=== PATIENT | male | born 1950 | race African-American/Black ===

== ENCOUNTER 2022-03-25 11:33 | Inpatient (IN) ==
[2022-03-25] MEDS ORDERED: HEPARIN/NACL 0.9% 2 UNITS/ML 3,000 UNIT/1,500 ML BAG IV ONE (12:58)
[2022-03-25 13:00] LABS: Basophils % 0.3 % (0.0-0.8); Eosinophils % 0.1 % (0.00-10.9); Hematocrit 38.3 VOL% (42.0-52.0); Hemoglobin 12.3 GM/DL (14.0-18.0); Immature Granulocytes % 0.3 %; Immature Granulocytes Absolute 0.04 #; Lymphocytes # 1.5 10*3/uL (1.4-4.0); Lymphocytes % 11.7 % (21.2-54.2); Mean Corpuscular HGB Conc 32.1 GM/DL (32-36); Mean Corpuscular Volume 85.7 FL (87-102); Mean Platelet Volume 10.5 FL (9.6-12.0); Monocytes # 1.2 10*3/uL (0.11-0.8); Monocytes % 9.4 % (1.7-12.7); Neutrophils % 78.2 % (38.7-73.9); Platelet Count 335 T/CUMM (130-400); Red Blood Count 4.47 MC/CUMM (3.8-5.5); Red Cell Distribution Width 15.9 % (9.3-17.3); White Blood Count 12.4 T/CUMM (4-12)
[2022-03-25 13:26] LABS: Alanine Aminotransferase 75 U/L (16-61); Albumin 3.4 G/DL (3.4-5.0); Alkaline Phosphatase 100 U/L (45-117); Aspartate Amino Transferase 593 U/L (0-37); Blood Urea Nitrogen 29 MG/DL (7-18); Calcium 9.3 MG/DL (8.5-10.1); Carbon Dioxide 24 MMOL/L (21-32); Chloride 106 MMOL/L (98-107); Glucose 101 MG/DL (74-106); Osmolality,Calculated 282.5 MOS/KG (273-304); Potassium 5.2 MMOL/L (3.5-5.1); Sodium 139 MMOL/L (136-145); Total Protein 7.5 G/DL (6.4-8.2)
[2022-03-25] MEDS ORDERED: MIDAZOLAM 2 MG/2 ML VIAL ONE (14:06)
[2022-03-25] MEDS ORDERED: fentaNYL 100 MCG/2 ML VIAL ONE (14:07)
[2022-03-25] MEDS ORDERED: HEPARIN 5,000 UNIT/1 ML VIAL ONE ×2 (14:08→14:23)
[2022-03-25] MEDS ORDERED: NITROGLYCERIN DRIP 50 MG/250 ML BOTTLE IV ONE (14:08)
[2022-03-25] MEDS ORDERED: ASPIRIN 325 MG TABLET ONE (14:09)
[2022-03-25] MEDS ORDERED: TICAGRELOR 90 MG TABLET ONE (14:10)
[2022-03-25] MEDS ORDERED: NITROPRUSSIDE 50 MG/2 ML VIAL ONE (14:24)
[2022-03-25 14:39] LABS: Bilirubin,Urine Small mg/dL (Negative); Glucose,Urine (UA) Negative (Negative); Ketones,Urine 15 mg/dL (Negative); Nitrite,Urine Negative (Negative); Protein,Urine 30 mg/dL (Negative); Urine Appearance Clear (Clear); Urine Color Yellow (Yellow); Urine pH 5.5 (4.5-8.0)
[2022-03-25 14:40] LABS: Blood, Urine Small mg/dL (Negative)
[2022-03-25 14:42] LABS: Barbiturates Screen,Urine Negative (Negative); Benzodiazepines Screen,Urine Negative (Negative); Cannabinoid Screen,Urine Negative (Negative); Opiate Screen,Urine Negative (Negative); Phencyclidine Screen,Urine Negative (Negative)
[2022-03-25] MEDS ORDERED: ZALEPLON 5 MG CAPSULE PO PRN (14:42)
[2022-03-25] MEDS ORDERED: BISACODYL 5 MG TABLET PO PRN (14:42)
[2022-03-25] MEDS ORDERED: diphenhydrAMINE CAP 25 MG CAPSULE PO PRN (14:42)
[2022-03-25] MEDS ORDERED: hydrALAZINE 20 MG/1 ML VIAL IV PRN (14:42)
[2022-03-25] MEDS ORDERED: CALCIUM CARBONATE CHEW 500 MG TABLET PO PRN (14:42)
[2022-03-25] MEDS ORDERED: ALUMINUM/MAGNES/SIMETH MAX STR 30 ML UDCUP PO PRN (14:42)
[2022-03-25] MEDS ORDERED: ACETAMINOPHEN 325 MG TABLET PO PRN (14:42)
[2022-03-25] MEDS ORDERED: SIMETHICONE CHEW 125 MG TABLET PO PRN (14:42)
[2022-03-25] MEDS ORDERED: GLUCAGON 1 MG VIAL IM PRN (14:49)
[2022-03-25] MEDS ORDERED: DEXTROSE 10% 250 ML BAG IV PRN (14:54)
[2022-03-25] MEDS: MORPHINE 2 MG/1 ML SYRINGE IV PRN (16:39)
[2022-03-25] MEDS: INSULIN LISPRO 100 UNIT/ML SUBCUT SCH ×2 (17:43→21:10)
[2022-03-25] MEDS: ONDANSETRON 4 MG/2 ML VIAL IV PRN (18:52)
[2022-03-25 18:59] LABS: Arterial Base Excess iSTAT -4 MMOL/L (-2.5-2.5); Arterial Bicarbonate iSTAT 19.8 MMOL/L (20-26); Arterial O2 Saturation iSTAT 99 % (95-100); Arterial PCO2 iSTAT 31 MM HG (35-48); Arterial PO2 iSTAT 120 MM HG (80-95); Arterial Total CO2 iSTAT 21 MMO/L (23-27); Arterial pH iSTAT 7.412 (7.35-7.45)
[2022-03-25] MEDS ORDERED: ALUM/MAG/SIMETH/LIDO VISC 1:1 30 ML BOTTLE PO ONE (19:00)
[2022-03-25] MEDS ORDERED: METOPROLOL TARTRATE 5 MG/5 ML VIAL IV ONE (20:00)
[2022-03-25] MEDS ORDERED: FUROSEMIDE 40 MG/4 ML VIAL IV ONE (20:00)
[2022-03-25] MEDS: carvediloL 3.125 MG TABLET PO SCH (21:08)
[2022-03-26 05:05] LABS: Basophils # 0.1 10*3/uL (0.0-0.2); Basophils % 0.5 % (0.0-0.8); Hematocrit 39.3 VOL% (42.0-52.0); Hemoglobin 12.4 GM/DL (14.0-18.0); Immature Granulocytes % 0.7 %; Immature Granulocytes Absolute 0.08 #; Lymphocytes # 1.3 10*3/uL (1.4-4.0); Lymphocytes % 10.9 % (21.2-54.2); Mean Corpuscular HGB Conc 31.6 GM/DL (32-36); Mean Corpuscular Volume 86.6 FL (87-102); Mean Platelet Volume 11.3 FL (9.6-12.0); Monocytes # 0.9 10*3/uL (0.11-0.8); Monocytes % 7.6 % (1.7-12.7); Neutrophils % 80.3 % (38.7-73.9); Platelet Count 331 T/CUMM (130-400); Red Blood Count 4.54 MC/CUMM (3.8-5.5); Red Cell Distribution Width 15.9 % (9.3-17.3); White Blood Count 11.5 T/CUMM (4-12)
[2022-03-26 05:47] LABS: Calcium 9.4 MG/DL (8.5-10.1); Osmolality,Calculated 288.8 MOS/KG (273-304); Potassium 5.1 MMOL/L (3.5-5.1); Risk Ratio 3.68; Thyroid Stimulating Hormone 0.591 uIU/ml (0.358-3.74); VLDL Cholesterol 18.8 MG/DL
[2022-03-26] MEDS: ASPIRIN EC 81 MG TABLET PO SCH (08:24)
[2022-03-26] MEDS: INSULIN LISPRO 100 UNIT/ML SUBCUT SCH ×4 (08:24→20:26)
[2022-03-26] MEDS: carvediloL 3.125 MG TABLET PO SCH (08:24)
[2022-03-26] MEDS: PANTOPRAZOLE 40 MG TABLET PO SCH (08:24)
[2022-03-26] MEDS: TICAGRELOR 90 MG TABLET PO SCH ×2 (08:24→20:26)
[2022-03-26] MEDS: DAPAGLIFLOZIN 10 MG TABLET PO SCH (08:24)
[2022-03-26] MEDS ORDERED: SACUBITRIL/VALSARTAN 49-51 MG TABLET PO SCH (09:00)
[2022-03-26] MEDS: carvediloL 6.25 MG TABLET PO SCH ×2 (11:41→20:26)
[2022-03-26] MEDS: SODIUM BICARBONATE 650 MG TABLET PO SCH ×2 (11:42→20:27)
[2022-03-26] MEDS ORDERED: FUROSEMIDE 40 MG/4 ML VIAL IV ONE (15:30)
[2022-03-27 04:17] LABS: Basophils # 0.1 10*3/uL (0.0-0.2); Basophils % 0.6 % (0.0-0.8); Eosinophils # 0.1 10*3/uL (0.0-0.87); Eosinophils % 0.9 % (0.00-10.9); Hematocrit 37.6 VOL% (42.0-52.0); Hemoglobin 11.8 GM/DL (14.0-18.0); Immature Granulocytes % 0.5 %; Immature Granulocytes Absolute 0.06 #; Lymphocytes # 1.2 10*3/uL (1.4-4.0); Lymphocytes % 9.8 % (21.2-54.2); Mean Corpuscular HGB Conc 31.4 GM/DL (32-36); Mean Corpuscular Volume 85.6 FL (87-102); Mean Platelet Volume 11.5 FL (9.6-12.0); Monocytes % 8.6 % (1.7-12.7); Neutrophils % 79.6 % (38.7-73.9); Platelet Count 328 T/CUMM (130-400); Red Blood Count 4.39 MC/CUMM (3.8-5.5); Red Cell Distribution Width 15.5 % (9.3-17.3); White Blood Count 11.8 T/CUMM (4-12)
[2022-03-27 04:45] LABS: Albumin 2.8 G/DL (3.4-5.0); Bilirubin,Direct 0.37 MG/DL (0.0-0.20); Bilirubin,Indirect 0.7 MG/DL (0.0-1.0); Bilirubin,Total 1.1 MG/DL (0.20-1.00); Total Protein 7.8 G/DL (6.4-8.2)
[2022-03-27 04:47] LABS: Calcium 9.4 MG/DL (8.5-10.1); Osmolality,Calculated 292.4 MOS/KG (273-304); Potassium 4.4 MMOL/L (3.5-5.1)
[2022-03-27] MEDS: DAPAGLIFLOZIN 10 MG TABLET PO SCH (08:12)
[2022-03-27] MEDS: carvediloL 6.25 MG TABLET PO SCH ×2 (08:12→20:13)
[2022-03-27] MEDS: PANTOPRAZOLE 40 MG TABLET PO SCH (08:12)
[2022-03-27] MEDS: ASPIRIN EC 81 MG TABLET PO SCH (08:12)
[2022-03-27] MEDS: SODIUM BICARBONATE 650 MG TABLET PO SCH ×2 (08:12→20:13)
[2022-03-27] MEDS: TICAGRELOR 90 MG TABLET PO SCH ×2 (08:12→20:13)
[2022-03-27] MEDS: INSULIN LISPRO 100 UNIT/ML SUBCUT SCH ×4 (08:12→20:13)
[2022-03-27] MEDS ORDERED: METHOCARBAMOL 500 MG TABLET PO PRN (10:27)
[2022-03-27] MEDS ORDERED: traMADol 50 MG TABLET PO PRN (10:27)
[2022-03-27] MEDS ORDERED: hydrALAZINE 25 MG TABLET PO PRN (10:27)
[2022-03-27] MEDS: FERROUS SULFATE 325 MG TABLET PO SCH (20:13)
[2022-03-28 04:34] LABS: Basophils # 0.1 10*3/uL (0.0-0.2); Basophils % 0.5 % (0.0-0.8); Eosinophils # 0.1 10*3/uL (0.0-0.87); Eosinophils % 1.3 % (0.00-10.9); Hematocrit 36.2 VOL% (42.0-52.0); Hemoglobin 11.6 GM/DL (14.0-18.0); Immature Granulocytes % 0.4 %; Immature Granulocytes Absolute 0.04 #; Lymphocytes # 0.9 10*3/uL (1.4-4.0); Lymphocytes % 8.5 % (21.2-54.2); Mean Platelet Volume 11.5 FL (9.6-12.0); Monocytes # 0.9 10*3/uL (0.11-0.8); Monocytes % 8.9 % (1.7-12.7); Neutrophils % 80.4 % (38.7-73.9); Platelet Count 317 T/CUMM (130-400); Red Blood Count 4.26 MC/CUMM (3.8-5.5); Red Cell Distribution Width 15.5 % (9.3-17.3); White Blood Count 10.6 T/CUMM (4-12)
[2022-03-28 05:35] LABS: Calcium 8.9 MG/DL (8.5-10.1); Osmolality,Calculated 295.5 MOS/KG (273-304); Potassium 4.3 MMOL/L (3.5-5.1)
[2022-03-28 06:09] LABS: Albumin 2.7 G/DL (3.4-5.0); Bilirubin,Direct 0.3 MG/DL (0.0-0.20); Bilirubin,Indirect 0.6 MG/DL (0.0-1.0); Bilirubin,Total 0.9 MG/DL (0.20-1.00); Total Protein 7.7 G/DL (6.4-8.2)
[2022-03-28] MEDS: FERROUS SULFATE 325 MG TABLET PO SCH ×2 (08:28→22:54)
[2022-03-28] MEDS: INSULIN LISPRO 100 UNIT/ML SUBCUT SCH ×4 (08:28→22:10)
[2022-03-28] MEDS: PANTOPRAZOLE 40 MG TABLET PO SCH (08:28)
[2022-03-28] MEDS: DAPAGLIFLOZIN 10 MG TABLET PO SCH (08:28)
[2022-03-28] MEDS: ASPIRIN EC 81 MG TABLET PO SCH (08:28)
[2022-03-28] MEDS: SODIUM BICARBONATE 650 MG TABLET PO SCH ×2 (08:28→22:54)
[2022-03-28] MEDS: TICAGRELOR 90 MG TABLET PO SCH ×2 (08:28→22:54)
[2022-03-28] MEDS: carvediloL 6.25 MG TABLET PO SCH ×2 (08:28→22:49)
[2022-03-28] MEDS: NON-FORMULARY MEDICATION (Fluticasone Furoate-Vilanterol [Breo Ellipta] 100-25 mcg/dose Bl INH SCH (08:29)
[2022-03-28] MEDS: INSULIN GLARGINE 100 UNIT/ML SUBCUT SCH (08:42)
[2022-03-28] MEDS ORDERED: ASPIRIN EC 81 MG TABLET PO SCH (09:00)
[2022-03-28] MEDS ORDERED: PANTOPRAZOLE 40 MG TABLET PO SCH (09:00)
[2022-03-28] MEDS ORDERED: EPINEPHrine 1 MG/10 ML SYRINGE IV ONE (21:11)
[2022-03-28] MEDS ORDERED: ATROPINE 1 MG/10 ML SYRINGE IV ONE (21:13)
[2022-03-28] MEDS ORDERED: ETOMIDATE 20 MG/10 ML VIAL IV ONE ×2 (21:16→21:24)
[2022-03-28] MEDS ORDERED: ROCURONIUM 100 MG/10 ML VIAL IV ONE (21:25)
[2022-03-28 21:51] LABS: Basophils # 0.1 10*3/uL (0.0-0.2); Basophils % 0.8 % (0.0-0.8); Eosinophils # 0.3 10*3/uL (0.0-0.87); Hematocrit 36.8 VOL% (42.0-52.0); Hemoglobin 11.8 GM/DL (14.0-18.0); Immature Granulocytes % 0.8 %; Immature Granulocytes Absolute 0.11 #; Lymphocytes # 2.9 10*3/uL (1.4-4.0); Lymphocytes % 22.3 % (21.2-54.2); Mean Corpuscular HGB Conc 32.1 GM/DL (32-36); Mean Corpuscular Volume 85.4 FL (87-102); Mean Platelet Volume 11.4 FL (9.6-12.0); Monocytes # 1.3 10*3/uL (0.11-0.8); Monocytes % 9.8 % (1.7-12.7); NRBC # 0.03 10*3/uL; Neutrophils % 64.3 % (38.7-73.9); Platelet Count 341 T/CUMM (130-400); Red Blood Count 4.31 MC/CUMM (3.8-5.5); Red Cell Distribution Width 15.3 % (9.3-17.3); White Blood Count 13.2 T/CUMM (4-12)
[2022-03-28 21:56] LABS: Bacteria,Urine Occasional /HPF (Few); Hyaline Casts,Urine 3 /LPF (0-3); Mucus,Urine Occasional /LPF (Occasional); RBC,Urine 1 /HPF (0-4); Squamous Epithelial Cell,Urine Occasional /HPF (0-10)
[2022-03-28 21:57] LABS: Bilirubin,Urine Negative (Negative); Blood, Urine Small mg/dL (Negative); Glucose,Urine (UA) >=1000 mg/dL (Negative); Ketones,Urine Negative (Negative); Nitrite,Urine Negative (Negative); Protein,Urine Negative (Negative); Urine Appearance Clear (Clear); Urine Color Yellow (Yellow); Urine Urobilinogen 0.2 eU/dL (<2.0)
[2022-03-28 22:07] VITALS: BP 129/80
[2022-03-28 22:18] LABS: Calcium 8.8 MG/DL (8.5-10.1); Osmolality,Calculated 300.7 MOS/KG (273-304); Potassium 4.3 MMOL/L (3.5-5.1)
[2022-03-28] MEDS ORDERED: SODIUM CHLORIDE 0.9% 250 ML IV ONE (22:43)
[2022-03-28] MEDS ORDERED: MIDAZOLAM 10 MG/2 ML VIAL ONE (22:44)
[2022-03-28] MEDS ORDERED: MIDAZOLAM 10 MG/2 ML VIAL IV ONE (22:45)
[2022-03-28] MEDS: MIDAZOLAM 100 MG in SODIUM CHLORIDE 0.9% 80 ML IV PRN (22:55)
[2022-03-28] MEDS: fentaNYL INJ 1,250 MCG in SODIUM CHLORIDE 0.9% 225 ML IV PRN (22:55)
[2022-03-29] LABS: Arterial Base Excess iSTAT 1 MMOL/L (-2.5-2.5); Arterial Bicarbonate iSTAT 26.5 MMOL/L (20-26); Arterial O2 Saturation iSTAT 100 % (95-100); Arterial PCO2 iSTAT 47 MM HG (35-48); Arterial PO2 iSTAT 330 MM HG (80-95); Arterial Total CO2 iSTAT 28 MMO/L (23-27)
[2022-03-29] MEDS: PIPERACILLIN/TAZOBACTAM 3,375 MG in SODIUM CHLORIDE 0.9% 100 ML IV SCH ×2 (00:45→12:16)
[2022-03-29] MEDS: INSULIN LISPRO 100 UNIT/ML SUBCUT SCH ×4 (00:45→17:37)
[2022-03-29 04:48] LABS: Basophils # 0.1 10*3/uL (0.0-0.2); Basophils % 0.4 % (0.0-0.8); Eosinophils # 0.1 10*3/uL (0.0-0.87); Eosinophils % 0.8 % (0.00-10.9); Hematocrit 33.6 VOL% (42.0-52.0); Hemoglobin 10.9 GM/DL (14.0-18.0); Immature Granulocytes % 0.5 %; Immature Granulocytes Absolute 0.06 #; Lymphocytes # 1.4 10*3/uL (1.4-4.0); Lymphocytes % 11.8 % (21.2-54.2); Mean Corpuscular HGB Conc 32.4 GM/DL (32-36); Mean Platelet Volume 11.8 FL (9.6-12.0); Monocytes # 0.9 10*3/uL (0.11-0.8); Monocytes % 7.3 % (1.7-12.7); Neutrophils % 79.2 % (38.7-73.9); Platelet Count 312 T/CUMM (130-400); White Blood Count 11.9 T/CUMM (4-12)
[2022-03-29 05:33] LABS: Calcium 8.5 MG/DL (8.5-10.1); Osmolality,Calculated 297.8 MOS/KG (273-304); Potassium 4.6 MMOL/L (3.5-5.1)
[2022-03-29 05:48] LABS: Albumin 2.4 G/DL (3.4-5.0); Bilirubin,Direct 0.24 MG/DL (0.0-0.20); Bilirubin,Indirect 0.6 MG/DL (0.0-1.0); Bilirubin,Total 0.8 MG/DL (0.20-1.00)
[2022-03-29] MEDS: fentaNYL INJ 1,250 MCG in SODIUM CHLORIDE 0.9% 225 ML IV PRN ×2 (06:48→21:30)
[2022-03-29] MEDS: TICAGRELOR 90 MG TABLET PO SCH ×2 (08:47→21:25)
[2022-03-29] MEDS: DAPAGLIFLOZIN 10 MG TABLET PO SCH (08:47)
[2022-03-29] MEDS: FERROUS SULFATE 325 MG TABLET PO SCH ×2 (08:48→21:25)
[2022-03-29] MEDS: ASPIRIN EC 81 MG TABLET PO SCH (08:48)
[2022-03-29] MEDS: SODIUM BICARBONATE 650 MG TABLET PO SCH ×2 (08:48→21:24)
[2022-03-29] MEDS: INSULIN GLARGINE 100 UNIT/ML SUBCUT SCH (08:49)
[2022-03-29] MEDS: carvediloL 6.25 MG TABLET PO SCH ×2 (08:49→21:25)
[2022-03-29] MEDS: NON-FORMULARY MEDICATION (Fluticasone Furoate-Vilanterol [Breo Ellipta] 100-25 mcg/dose Bl INH SCH (08:51)
[2022-03-29] MEDS: PANTOPRAZOLE 40 MG VIAL IV SCH (08:54)
[2022-03-29 08:56] LABS: Arterial Base Excess iSTAT 0 MMOL/L (-2.5-2.5); Arterial Bicarbonate iSTAT 24.9 MMOL/L (20-26); Arterial O2 Saturation iSTAT 99 % (95-100); Arterial PCO2 iSTAT 41 MM HG (35-48); Arterial PO2 iSTAT 121 MM HG (80-95); Arterial Total CO2 iSTAT 26 MMO/L (23-27); Arterial pH iSTAT 7.393 (7.35-7.45)
[2022-03-29] MEDS ORDERED: FUROSEMIDE 20 MG TABLET PO SCH (09:00)
[2022-03-30] MEDS: INSULIN LISPRO 100 UNIT/ML SUBCUT SCH ×5 (00:55→23:45)
[2022-03-30] MEDS: PIPERACILLIN/TAZOBACTAM 3,375 MG in SODIUM CHLORIDE 0.9% 100 ML IV SCH ×3 (01:29→23:46)
[2022-03-30] MEDS: MIDAZOLAM 100 MG in SODIUM CHLORIDE 0.9% 80 ML IV PRN (04:05)
[2022-03-30 04:16] LABS: ABG Base Excess -1.6 MMOL/L (-2.5-2.5); ABG Oxygen Saturation 95.5 % (95-100); ABG PCO2 40.6 MM HG (35-48); ABG PH 7.371 (7.35-7.45); ABG PO2 83.8 MM HG (80-95); Allen Test Positive; Pt O2 Delivery Device Ventilator
[2022-03-30 05:24] LABS: Basophils # 0.1 10*3/uL (0.0-0.2); Basophils % 0.4 % (0.0-0.8); Eosinophils # 0.4 10*3/uL (0.0-0.87); Eosinophils % 2.3 % (0.00-10.9); Hematocrit 34.9 VOL% (42.0-52.0); Hemoglobin 11.2 GM/DL (14.0-18.0); Immature Granulocytes % 0.7 %; Immature Granulocytes Absolute 0.12 #; Lymphocytes # 0.9 10*3/uL (1.4-4.0); Lymphocytes % 5.5 % (21.2-54.2); Mean Corpuscular HGB Conc 32.1 GM/DL (32-36); Mean Corpuscular Volume 85.7 FL (87-102); Mean Platelet Volume 11.7 FL (9.6-12.0); Monocytes # 0.8 10*3/uL (0.11-0.8); Monocytes % 4.8 % (1.7-12.7); Neutrophils % 86.3 % (38.7-73.9); Platelet Count 251 T/CUMM (130-400); Red Blood Count 4.07 MC/CUMM (3.8-5.5); Red Cell Distribution Width 15.5 % (9.3-17.3); White Blood Count 16.4 T/CUMM (4-12)
[2022-03-30 05:41] LABS: Albumin 2.5 G/DL (3.4-5.0); Bilirubin,Direct 0.36 MG/DL (0.0-0.20); Bilirubin,Indirect 0.4 MG/DL (0.0-1.0); Bilirubin,Total 0.8 MG/DL (0.20-1.00); Osmolality,Calculated 308.5 MOS/KG (273-304); Potassium 4.8 MMOL/L (3.5-5.1)
[2022-03-30] MEDS: PANTOPRAZOLE 40 MG VIAL IV SCH (08:57)
[2022-03-30] MEDS: TICAGRELOR 90 MG TABLET PO SCH ×2 (08:57→20:10)
[2022-03-30] MEDS: FERROUS SULFATE 325 MG TABLET PO SCH ×2 (08:57→20:11)
[2022-03-30] MEDS: ASPIRIN EC 81 MG TABLET PO SCH (08:57)
[2022-03-30] MEDS: SODIUM BICARBONATE 650 MG TABLET PO SCH ×2 (08:57→20:10)
[2022-03-30] MEDS: DAPAGLIFLOZIN 10 MG TABLET PO SCH (08:57)
[2022-03-30] MEDS: carvediloL 3.125 MG TABLET PO SCH ×2 (08:57→20:11)
[2022-03-30] MEDS: INSULIN GLARGINE 100 UNIT/ML SUBCUT SCH (09:57)
[2022-03-30] MEDS: HEPARIN 5,000 UNIT/1 ML VIAL SUBCUT SCH ×2 (09:57→21:30)
[2022-03-30] MEDS: fentaNYL INJ 1,250 MCG in SODIUM CHLORIDE 0.9% 225 ML IV PRN (11:20)
[2022-03-31] MEDS: fentaNYL INJ 1,250 MCG in SODIUM CHLORIDE 0.9% 225 ML IV PRN ×2 (00:41→21:44)
[2022-03-31 05:11] LABS: Arterial Base Excess iSTAT 1 MMOL/L (-2.5-2.5); Arterial Bicarbonate iSTAT 26.1 MMOL/L (20-26); Arterial O2 Saturation iSTAT 100 % (95-100); Arterial PCO2 iSTAT 44 MM HG (35-48); Arterial PO2 iSTAT 225 MM HG (80-95); Arterial Total CO2 iSTAT 27 MMO/L (23-27); Arterial pH iSTAT 7.379 (7.35-7.45)
[2022-03-31 05:11] LABS: Basophils # 0.1 10*3/uL (0.0-0.2); Basophils % 0.4 % (0.0-0.8); Eosinophils # 0.2 10*3/uL (0.0-0.87); Hematocrit 30.8 VOL% (42.0-52.0); Hemoglobin 9.9 GM/DL (14.0-18.0); Immature Granulocytes % 1.7 %; Immature Granulocytes Absolute 0.28 #; Lymphocytes # 1.3 10*3/uL (1.4-4.0); Lymphocytes % 8.1 % (21.2-54.2); Mean Corpuscular HGB Conc 32.1 GM/DL (32-36); Mean Corpuscular Volume 86.3 FL (87-102); Mean Platelet Volume 11.9 FL (9.6-12.0); Monocytes # 1.1 10*3/uL (0.11-0.8); Monocytes % 6.6 % (1.7-12.7); Neutrophils % 82.2 % (38.7-73.9); Platelet Count 209 T/CUMM (130-400); Red Blood Count 3.57 MC/CUMM (3.8-5.5); Red Cell Distribution Width 15.9 % (9.3-17.3); White Blood Count 16.5 T/CUMM (4-12)
[2022-03-31 05:27] LABS: Calcium 9.1 MG/DL (8.5-10.1); Osmolality,Calculated 322.3 MOS/KG (273-304); Potassium 5.1 MMOL/L (3.5-5.1)
[2022-03-31 05:30] LABS: Albumin 2.1 G/DL (3.4-5.0); Bilirubin,Direct 0.46 MG/DL (0.0-0.20); Bilirubin,Indirect 0.2 MG/DL (0.0-1.0); Bilirubin,Total 0.7 MG/DL (0.20-1.00); Total Protein 6.1 G/DL (6.4-8.2)
[2022-03-31] MEDS: INSULIN LISPRO 100 UNIT/ML SUBCUT SCH ×4 (05:34→23:29)
[2022-03-31 05:41] LABS: Band Neutrophils 3 % (0-10); Hypochromia 1+; Lymphocytes 8 % (20-55); Total Cells Counted 100
[2022-03-31 05:42] LABS: Microcytosis 1+
[2022-03-31] MEDS: ASPIRIN EC 81 MG TABLET PO SCH (08:06)
[2022-03-31] MEDS: TICAGRELOR 90 MG TABLET PO SCH ×2 (08:06→20:14)
[2022-03-31] MEDS: FERROUS SULFATE 325 MG TABLET PO SCH (08:07)
[2022-03-31] MEDS: SODIUM BICARBONATE 650 MG TABLET PO SCH ×2 (08:07→20:14)
[2022-03-31] MEDS: DAPAGLIFLOZIN 10 MG TABLET PO SCH (08:07)
[2022-03-31] MEDS: INSULIN GLARGINE 100 UNIT/ML SUBCUT SCH (08:08)
[2022-03-31] MEDS: PANTOPRAZOLE 40 MG VIAL IV SCH (08:08)
[2022-03-31] MEDS: carvediloL 3.125 MG TABLET PO SCH ×2 (08:47→20:14)
[2022-03-31] MEDS: HEPARIN 5,000 UNIT/1 ML VIAL SUBCUT SCH ×2 (10:38→22:13)
[2022-03-31] MEDS: PIPERACILLIN/TAZOBACTAM 3,375 MG in SODIUM CHLORIDE 0.9% 100 ML IV SCH ×2 (11:36→23:28)
[2022-03-31 14:15] LABS: Hepatitis B Core IgM Quant 0.18 Index; Hepatitis B Surface Ag Quant < 0.10 Index; Hepatitis B Surface Ag Result Non-Reactive (NonReactive); Hepatitis C Virus Ab Quant 0.05 Index; Hepatitis C Virus Ab Result Non-Reactive (NonReactive)
[2022-03-31] MEDS: FERROUS SULFATE 300 MG/5 ML UDCUP PO SCH (20:13)
[2022-03-31] MEDS: LACTULOSE 20 GM/30 ML UDCUP PO PRN (20:38)
[2022-03-31] MEDS: MIDAZOLAM 100 MG in SODIUM CHLORIDE 0.9% 80 ML IV PRN (22:58)
[2022-04-01] MEDS: LACTULOSE 20 GM/30 ML UDCUP PO PRN (00:14)
[2022-04-01] MEDS: INSULIN LISPRO 100 UNIT/ML SUBCUT SCH ×5 (01:42→20:14)
[2022-04-01] MEDS ORDERED: METOCLOPRAMIDE 10 MG/2 ML VIAL IV ONE (02:39)
[2022-04-01 03:22] LABS: Arterial Base Excess iSTAT 3 MMOL/L (-2.5-2.5); Arterial O2 Saturation iSTAT 100 % (95-100); Arterial PCO2 iSTAT 28 MM HG (35-48); Arterial PO2 iSTAT 172 MM HG (80-95); Arterial Total CO2 iSTAT 26 MMO/L (23-27); Arterial pH iSTAT 7.553 (7.35-7.45)
[2022-04-01 04:05] LABS: Basophils % 0.2 % (0.0-0.8); Eosinophils # 0.5 10*3/uL (0.0-0.87); Eosinophils % 3.6 % (0.00-10.9); Hemoglobin 9.5 GM/DL (14.0-18.0); Immature Granulocytes Absolute 0.13 #; Lymphocytes % 7.8 % (21.2-54.2); Mean Corpuscular HGB Conc 31.7 GM/DL (32-36); Mean Corpuscular Volume 86.7 FL (87-102); Mean Platelet Volume 12.1 FL (9.6-12.0); Monocytes # 0.9 10*3/uL (0.11-0.8); NRBC # 0.06 10*3/uL; Neutrophils % 80.4 % (38.7-73.9); Platelet Count 201 T/CUMM (130-400); Red Blood Count 3.46 MC/CUMM (3.8-5.5); White Blood Count 12.5 T/CUMM (4-12)
[2022-04-01 04:54] LABS: Calcium 9.4 MG/DL (8.5-10.1); Osmolality,Calculated 332.4 MOS/KG (273-304); Potassium 4.7 MMOL/L (3.5-5.1)
[2022-04-01 05:04] LABS: Bilirubin,Direct 0.32 MG/DL (0.0-0.20); Bilirubin,Indirect 0.2 MG/DL (0.0-1.0); Bilirubin,Total 0.5 MG/DL (0.20-1.00); Total Protein 6.6 G/DL (6.4-8.2)
[2022-04-01] MEDS ORDERED: INSULIN GLARGINE 100 UNIT/ML SUBCUT SCH (09:00)
[2022-04-01] MEDS: FERROUS SULFATE 300 MG/5 ML UDCUP PO SCH ×2 (09:06→20:14)
[2022-04-01] MEDS: carvediloL 3.125 MG TABLET PO SCH ×2 (09:07→20:14)
[2022-04-01] MEDS: TICAGRELOR 90 MG TABLET PO SCH ×2 (09:07→20:14)
[2022-04-01] MEDS: ASPIRIN EC 81 MG TABLET PO SCH (09:07)
[2022-04-01] MEDS: SODIUM BICARBONATE 650 MG TABLET PO SCH ×2 (09:07→20:14)
[2022-04-01] MEDS: DAPAGLIFLOZIN 10 MG TABLET PO SCH (09:07)
[2022-04-01] MEDS: PANTOPRAZOLE 40 MG VIAL IV SCH (09:07)
[2022-04-01] MEDS: HEPARIN 5,000 UNIT/1 ML VIAL SUBCUT SCH ×2 (09:07→22:05)
[2022-04-01] MEDS: AMIODARONE 200 MG TABLET PO SCH (11:29)
[2022-04-01] MEDS: PIPERACILLIN/TAZOBACTAM 3,375 MG in SODIUM CHLORIDE 0.9% 100 ML IV SCH ×2 (11:30→11:48)
[2022-04-01] MEDS: METOCLOPRAMIDE 10 MG/2 ML VIAL IV SCH ×2 (11:33→17:04)
[2022-04-01] MEDS: SODIUM CHLORIDE 0.45% 1,000 ML IV SCH (13:53)
[2022-04-01] MEDS ORDERED: MORPHINE 2 MG/1 ML SYRINGE IV PRN (16:53)
[2022-04-01 19:05] LABS: Calcium 8.8 MG/DL (8.5-10.1); Osmolality,Calculated 339.3 MOS/KG (273-304); Potassium 4.8 MMOL/L (3.5-5.1)
[2022-04-02] MEDS: METOCLOPRAMIDE 10 MG/2 ML VIAL IV SCH ×4 (00:02→17:38)
[2022-04-02] MEDS: INSULIN LISPRO 100 UNIT/ML SUBCUT SCH ×6 (00:03→21:04)
[2022-04-02] MEDS: PIPERACILLIN/TAZOBACTAM 3,375 MG in SODIUM CHLORIDE 0.9% 100 ML IV SCH ×2 (00:03→12:05)
[2022-04-02 03:32] LABS: Arterial Base Excess iSTAT 0 MMOL/L (-2.5-2.5); Arterial Bicarbonate iSTAT 25.1 MMOL/L (20-26); Arterial O2 Saturation iSTAT 93 % (95-100); Arterial PCO2 iSTAT 42 MM HG (35-48); Arterial PO2 iSTAT 69 MM HG (80-95); Arterial Total CO2 iSTAT 26 MMO/L (23-27)
[2022-04-02 04:18] LABS: Basophils % 0.3 % (0.0-0.8); Eosinophils # 0.5 10*3/uL (0.0-0.87); Eosinophils % 3.4 % (0.00-10.9); Hematocrit 30.7 VOL% (42.0-52.0); Hemoglobin 9.5 GM/DL (14.0-18.0); Immature Granulocytes % 1.7 %; Immature Granulocytes Absolute 0.23 #; Lymphocytes # 1.1 10*3/uL (1.4-4.0); Lymphocytes % 8.2 % (21.2-54.2); Mean Corpuscular HGB Conc 30.9 GM/DL (32-36); Mean Corpuscular Volume 87.7 FL (87-102); Mean Platelet Volume 11.9 FL (9.6-12.0); Monocytes # 1.2 10*3/uL (0.11-0.8); Monocytes % 8.5 % (1.7-12.7); NRBC # 0.13 10*3/uL; Neutrophils % 77.9 % (38.7-73.9); Platelet Count 198 T/CUMM (130-400); Red Cell Distribution Width 16.1 % (9.3-17.3); White Blood Count 13.7 T/CUMM (4-12)
[2022-04-02 05:00] LABS: Calcium 9.2 MG/DL (8.5-10.1); Osmolality,Calculated 326.6 MOS/KG (273-304); Potassium 4.5 MMOL/L (3.5-5.1)
[2022-04-02 05:11] LABS: Bilirubin,Direct 0.34 MG/DL (0.0-0.20); Bilirubin,Indirect 0.3 MG/DL (0.0-1.0); Bilirubin,Total 0.6 MG/DL (0.20-1.00)
[2022-04-02] MEDS: FERROUS SULFATE 300 MG/5 ML UDCUP PO SCH ×2 (09:03→21:03)
[2022-04-02] MEDS: SODIUM BICARBONATE 650 MG TABLET PO SCH ×2 (09:03→21:02)
[2022-04-02] MEDS: TICAGRELOR 90 MG TABLET PO SCH ×2 (09:03→21:02)
[2022-04-02] MEDS: INSULIN GLARGINE 100 UNIT/ML SUBCUT SCH (09:03)
[2022-04-02] MEDS: ASPIRIN EC 81 MG TABLET PO SCH (09:03)
[2022-04-02] MEDS: carvediloL 3.125 MG TABLET PO SCH ×2 (09:03→21:03)
[2022-04-02] MEDS: HEPARIN 5,000 UNIT/1 ML VIAL SUBCUT SCH ×2 (09:03→21:04)
[2022-04-02] MEDS: AMIODARONE 200 MG TABLET PO SCH (09:04)
[2022-04-02] MEDS: PANTOPRAZOLE 40 MG VIAL IV SCH (09:04)
[2022-04-02] MEDS: SODIUM CHLORIDE 0.45% 1,000 ML IV SCH (09:47)
[2022-04-02] MEDS ORDERED: ROSUVASTATIN 10 MG TABLET PO SCH (21:00)
[2022-04-03] MEDS: PIPERACILLIN/TAZOBACTAM 3,375 MG in SODIUM CHLORIDE 0.9% 100 ML IV SCH (00:35)
[2022-04-03] MEDS: INSULIN LISPRO 100 UNIT/ML SUBCUT SCH ×6 (00:59→21:16)
[2022-04-03] MEDS: METOCLOPRAMIDE 10 MG/2 ML VIAL IV SCH ×4 (00:59→17:27)
[2022-04-03 04:20] LABS: Arterial Base Excess iSTAT 1 MMOL/L (-2.5-2.5); Arterial Bicarbonate iSTAT 25.6 MMOL/L (20-26); Arterial O2 Saturation iSTAT 99 % (95-100); Arterial PCO2 iSTAT 42 MM HG (35-48); Arterial PO2 iSTAT 121 MM HG (80-95); Arterial Total CO2 iSTAT 27 MMO/L (23-27); Arterial pH iSTAT 7.392 (7.35-7.45)
[2022-04-03 04:57] LABS: Basophils # 0.1 10*3/uL (0.0-0.2); Basophils % 0.4 % (0.0-0.8); Eosinophils # 0.6 10*3/uL (0.0-0.87); Eosinophils % 4.3 % (0.00-10.9); Hematocrit 29.2 VOL% (42.0-52.0); Immature Granulocytes % 1.7 %; Immature Granulocytes Absolute 0.24 #; Lymphocytes # 1.5 10*3/uL (1.4-4.0); Lymphocytes % 10.4 % (21.2-54.2); Mean Corpuscular HGB Conc 30.8 GM/DL (32-36); Mean Corpuscular Volume 88.2 FL (87-102); Mean Platelet Volume 12.3 FL (9.6-12.0); Monocytes # 1.4 10*3/uL (0.11-0.8); Monocytes % 9.5 % (1.7-12.7); NRBC # 0.05 10*3/uL; Neutrophils % 73.7 % (38.7-73.9); Platelet Count 196 T/CUMM (130-400); Red Blood Count 3.31 MC/CUMM (3.8-5.5); Red Cell Distribution Width 16.2 % (9.3-17.3); White Blood Count 14.3 T/CUMM (4-12)
[2022-04-03 05:10] LABS: Calcium 8.7 MG/DL (8.5-10.1); Osmolality,Calculated 331.9 MOS/KG (273-304); Potassium 4.3 MMOL/L (3.5-5.1)
[2022-04-03 05:13] LABS: Albumin 1.9 G/DL (3.4-5.0); Bilirubin,Direct 0.44 MG/DL (0.0-0.20); Bilirubin,Indirect 0.3 MG/DL (0.0-1.0); Bilirubin,Total 0.7 MG/DL (0.20-1.00); Total Protein 5.7 G/DL (6.4-8.2)
[2022-04-03] MEDS: SODIUM CHLORIDE 0.45% 1,000 ML IV SCH (06:50)
[2022-04-03] MEDS: AMIODARONE 200 MG TABLET PO SCH (08:44)
[2022-04-03] MEDS: TICAGRELOR 90 MG TABLET PO SCH ×2 (08:44→21:17)
[2022-04-03] MEDS: carvediloL 3.125 MG TABLET PO SCH ×2 (08:44→21:19)
[2022-04-03] MEDS: FERROUS SULFATE 300 MG/5 ML UDCUP PO SCH ×2 (08:44→21:20)
[2022-04-03] MEDS: ASPIRIN EC 81 MG TABLET PO SCH (08:44)
[2022-04-03] MEDS: INSULIN GLARGINE 100 UNIT/ML SUBCUT SCH ×2 (08:45→09:07)
[2022-04-03] MEDS: PANTOPRAZOLE 40 MG VIAL IV SCH (08:46)
[2022-04-03] MEDS ORDERED: INSULIN GLARGINE 100 UNIT/ML SUBCUT ONE (08:58)
[2022-04-03] MEDS: HEPARIN 5,000 UNIT/1 ML VIAL SUBCUT SCH ×2 (09:00→21:16)
[2022-04-03] MEDS: cefTRIAXone 1,000 MG in SODIUM CHLORIDE 0.9% 100 ML IV SCH (09:08)
[2022-04-03] MEDS ORDERED: DIAZEPAM 10 MG/2 ML SYRINGE IV ONE (13:37)
[2022-04-03] MEDS: MORPHINE 2 MG/1 ML SYRINGE IV PRN (13:47)
[2022-04-03] MEDS: DEXMEDETOMIDINE 200 MCG in SODIUM CHLORIDE 0.9% 48 ML IV PRN (14:10)
[2022-04-03] MEDS: DEXMEDETOMIDINE 400 MCG in SODIUM CHLORIDE 0.9% 96 ML IV PRN (17:15)
[2022-04-03] MEDS: ASCORBIC ACID 500 MG TABLET NG SCH (21:17)
[2022-04-04] MEDS: INSULIN LISPRO 100 UNIT/ML SUBCUT SCH ×6 (00:55→20:10)
[2022-04-04] MEDS: METOCLOPRAMIDE 10 MG/2 ML VIAL IV SCH ×4 (00:56→18:25)
[2022-04-04] MEDS: DEXMEDETOMIDINE 400 MCG in SODIUM CHLORIDE 0.9% 96 ML IV PRN (01:10)
[2022-04-04] MEDS: MORPHINE 2 MG/1 ML SYRINGE IV PRN (01:20)
[2022-04-04 04:39] LABS: Basophils % 0.2 % (0.0-0.8); Eosinophils # 0.6 10*3/uL (0.0-0.87); Eosinophils % 5.2 % (0.00-10.9); Hematocrit 30.3 VOL% (42.0-52.0); Hemoglobin 9.1 GM/DL (14.0-18.0); Immature Granulocytes % 2.2 %; Immature Granulocytes Absolute 0.27 #; Lymphocytes # 1.5 10*3/uL (1.4-4.0); Lymphocytes % 12.2 % (21.2-54.2); Mean Corpuscular Volume 89.6 FL (87-102); Mean Platelet Volume 12.7 FL (9.6-12.0); Monocytes # 1.2 10*3/uL (0.11-0.8); Monocytes % 9.7 % (1.7-12.7); NRBC # 0.05 10*3/uL; Neutrophils % 70.5 % (38.7-73.9); Platelet Count 207 T/CUMM (130-400); Red Blood Count 3.38 MC/CUMM (3.8-5.5); Red Cell Distribution Width 16.2 % (9.3-17.3); White Blood Count 12.4 T/CUMM (4-12)
[2022-04-04 04:40] LABS: Arterial Base Excess iSTAT -1 MMOL/L (-2.5-2.5); Arterial Bicarbonate iSTAT 23.7 MMOL/L (20-26); Arterial O2 Saturation iSTAT 98 % (95-100); Arterial PCO2 iSTAT 39 MM HG (35-48); Arterial PO2 iSTAT 108 MM HG (80-95); Arterial Total CO2 iSTAT 25 MMO/L (23-27); Arterial pH iSTAT 7.387 (7.35-7.45)
[2022-04-04 05:12] LABS: Calcium 9.1 MG/DL (8.5-10.1); Osmolality,Calculated 321.3 MOS/KG (273-304); Potassium 4.3 MMOL/L (3.5-5.1)
[2022-04-04 05:22] LABS: Albumin 1.8 G/DL (3.4-5.0); Bilirubin,Direct 0.3 MG/DL (0.0-0.20); Bilirubin,Indirect 0.2 MG/DL (0.0-1.0); Bilirubin,Total 0.5 MG/DL (0.20-1.00); Total Protein 6.5 G/DL (6.4-8.2)
[2022-04-04 05:30] LABS: Uric Acid 6.6 MG/DL (3.5-7.2)
[2022-04-04] MEDS: DEXMEDETOMIDINE 200 MCG in SODIUM CHLORIDE 0.9% 48 ML IV PRN (07:57)
[2022-04-04] MEDS: ASPIRIN EC 81 MG TABLET PO SCH (09:16)
[2022-04-04] MEDS: ASCORBIC ACID 500 MG TABLET NG SCH ×2 (09:16→20:56)
[2022-04-04] MEDS: AMIODARONE 200 MG TABLET PO SCH (09:16)
[2022-04-04] MEDS: INSULIN GLARGINE 100 UNIT/ML SUBCUT SCH (09:17)
[2022-04-04] MEDS: TICAGRELOR 90 MG TABLET PO SCH ×2 (09:17→20:56)
[2022-04-04] MEDS: carvediloL 3.125 MG TABLET PO SCH ×2 (09:17→20:56)
[2022-04-04] MEDS: PANTOPRAZOLE 40 MG VIAL IV SCH (09:18)
[2022-04-04] MEDS: FERROUS SULFATE 300 MG/5 ML UDCUP PO SCH ×2 (09:18→20:57)
[2022-04-04] MEDS: cefTRIAXone 1,000 MG in SODIUM CHLORIDE 0.9% 100 ML IV SCH (09:21)
[2022-04-04] MEDS: HEPARIN 5,000 UNIT/1 ML VIAL SUBCUT SCH ×2 (10:16→21:03)
[2022-04-05] MEDS: INSULIN LISPRO 100 UNIT/ML SUBCUT SCH ×6 (00:54→20:49)
[2022-04-05] MEDS: METOCLOPRAMIDE 10 MG/2 ML VIAL IV SCH ×4 (00:55→18:35)
[2022-04-05 04:16] LABS: Arterial Base Excess iSTAT -2 MMOL/L (-2.5-2.5); Arterial Bicarbonate iSTAT 21.7 MMOL/L (20-26); Arterial O2 Saturation iSTAT 97 % (95-100); Arterial PCO2 iSTAT 33 MM HG (35-48); Arterial PO2 iSTAT 87 MM HG (80-95); Arterial Total CO2 iSTAT 23 MMO/L (23-27); Arterial pH iSTAT 7.433 (7.35-7.45)
[2022-04-05 05:15] LABS: Basophils # 0.1 10*3/uL (0.0-0.2); Basophils % 0.3 % (0.0-0.8); Eosinophils # 0.6 10*3/uL (0.0-0.87); Hemoglobin 9.4 GM/DL (14.0-18.0); Immature Granulocytes % 2.4 %; Immature Granulocytes Absolute 0.35 #; Lymphocytes # 1.8 10*3/uL (1.4-4.0); Lymphocytes % 12.5 % (21.2-54.2); Mean Corpuscular HGB Conc 30.3 GM/DL (32-36); Mean Corpuscular Volume 89.3 FL (87-102); Mean Platelet Volume 12.6 FL (9.6-12.0); Monocytes # 1.5 10*3/uL (0.11-0.8); NRBC # 0.04 10*3/uL; Neutrophils % 70.8 % (38.7-73.9); Platelet Count 258 T/CUMM (130-400); Red Blood Count 3.47 MC/CUMM (3.8-5.5); Red Cell Distribution Width 16.5 % (9.3-17.3); White Blood Count 14.5 T/CUMM (4-12)
[2022-04-05 05:37] LABS: Osmolality,Calculated 326.7 MOS/KG (273-304); Potassium 4.1 MMOL/L (3.5-5.1)
[2022-04-05 05:41] LABS: Albumin 1.9 G/DL (3.4-5.0); Bilirubin,Direct 0.29 MG/DL (0.0-0.20); Bilirubin,Indirect 0.3 MG/DL (0.0-1.0); Bilirubin,Total 0.6 MG/DL (0.20-1.00); Total Protein 6.6 G/DL (6.4-8.2)
[2022-04-05] MEDS: INSULIN GLARGINE 100 UNIT/ML SUBCUT SCH (08:43)
[2022-04-05] MEDS: FERROUS SULFATE 300 MG/5 ML UDCUP PO SCH ×2 (08:43→20:49)
[2022-04-05] MEDS: PANTOPRAZOLE 40 MG VIAL IV SCH (08:43)
[2022-04-05] MEDS: carvediloL 3.125 MG TABLET PO SCH ×2 (08:44→20:49)
[2022-04-05] MEDS: cefTRIAXone 1,000 MG in SODIUM CHLORIDE 0.9% 100 ML IV SCH (08:44)
[2022-04-05] MEDS: ASCORBIC ACID 500 MG TABLET NG SCH ×2 (08:44→20:49)
[2022-04-05] MEDS: ASPIRIN EC 81 MG TABLET PO SCH (08:44)
[2022-04-05] MEDS: TICAGRELOR 90 MG TABLET PO SCH ×2 (08:44→20:49)
[2022-04-05] MEDS: AMIODARONE 200 MG TABLET PO SCH (08:44)
[2022-04-05] MEDS ORDERED: INSULIN GLARGINE 100 UNIT/ML SUBCUT SCH (09:00)
[2022-04-05] MEDS: HEPARIN 5,000 UNIT/1 ML VIAL SUBCUT SCH ×2 (10:56→21:11)
[2022-04-05] MEDS ORDERED: FUROSEMIDE 40 MG/4 ML VIAL IV ONE (11:21)
[2022-04-05] MEDS: CHOLECALCIFEROL 400 UNIT TABLET PO SCH (20:49)
[2022-04-05] MEDS: ONDANSETRON 4 MG/2 ML VIAL IV PRN (21:11)
[2022-04-06] MEDS: INSULIN LISPRO 100 UNIT/ML SUBCUT SCH ×6 (00:44→21:17)
[2022-04-06] MEDS: METOCLOPRAMIDE 10 MG/2 ML VIAL IV SCH ×4 (00:44→17:10)
[2022-04-06 04:00] LABS: Arterial Base Excess iSTAT 1 MMOL/L (-2.5-2.5); Arterial Bicarbonate iSTAT 25.9 MMOL/L (20-26); Arterial O2 Saturation iSTAT 98 % (95-100); Arterial PCO2 iSTAT 41 MM HG (35-48); Arterial PO2 iSTAT 102 MM HG (80-95); Arterial Total CO2 iSTAT 27 MMO/L (23-27); Arterial pH iSTAT 7.411 (7.35-7.45)
[2022-04-06 04:12] LABS: Basophils # 0.1 10*3/uL (0.0-0.2); Basophils % 0.4 % (0.0-0.8); Eosinophils # 0.3 10*3/uL (0.0-0.87); Eosinophils % 2.4 % (0.00-10.9); Hematocrit 36.7 VOL% (42.0-52.0); Hemoglobin 11.1 GM/DL (14.0-18.0); Immature Granulocytes % 1.9 %; Immature Granulocytes Absolute 0.25 #; Lymphocytes # 1.7 10*3/uL (1.4-4.0); Lymphocytes % 13.1 % (21.2-54.2); Mean Corpuscular HGB Conc 30.2 GM/DL (32-36); Mean Corpuscular Volume 88.9 FL (87-102); Mean Platelet Volume 12.3 FL (9.6-12.0); Monocytes # 1.4 10*3/uL (0.11-0.8); Monocytes % 10.4 % (1.7-12.7); NRBC # 0.03 10*3/uL; Neutrophils % 71.8 % (38.7-73.9); Platelet Count 393 T/CUMM (130-400); Red Blood Count 4.13 MC/CUMM (3.8-5.5); Red Cell Distribution Width 16.9 % (9.3-17.3); White Blood Count 13.2 T/CUMM (4-12)
[2022-04-06 04:30] LABS: Albumin 2.2 G/DL (3.4-5.0); Bilirubin,Total 0.5 MG/DL (0.20-1.00); Calcium 9.7 MG/DL (8.5-10.1); Osmolality,Calculated 330.6 MOS/KG (273-304); Potassium 4.2 MMOL/L (3.5-5.1); Total Protein 7.9 G/DL (6.4-8.2)
[2022-04-06 04:46] LABS: Albumin 2.4 G/DL (3.4-5.0); Bilirubin,Direct 0.23 MG/DL (0.0-0.20); Bilirubin,Indirect 0.3 MG/DL (0.0-1.0); Bilirubin,Total 0.5 MG/DL (0.20-1.00); Total Protein 7.1 G/DL (6.4-8.2)
[2022-04-06] MEDS: ASPIRIN EC 81 MG TABLET PO SCH (08:27)
[2022-04-06] MEDS: carvediloL 3.125 MG TABLET PO SCH ×2 (08:27→21:16)
[2022-04-06] MEDS: TICAGRELOR 90 MG TABLET PO SCH ×2 (08:27→21:16)
[2022-04-06] MEDS: AMIODARONE 200 MG TABLET PO SCH (08:27)
[2022-04-06] MEDS: ASCORBIC ACID 500 MG TABLET NG SCH ×2 (08:28→21:16)
[2022-04-06] MEDS: CHOLECALCIFEROL 400 UNIT TABLET PO SCH ×2 (08:28→21:16)
[2022-04-06] MEDS: FERROUS SULFATE 300 MG/5 ML UDCUP PO SCH ×2 (08:28→21:18)
[2022-04-06] MEDS: INSULIN GLARGINE 100 UNIT/ML SUBCUT SCH (08:29)
[2022-04-06] MEDS: PANTOPRAZOLE 40 MG VIAL IV SCH (08:30)
[2022-04-06] MEDS: cefTRIAXone 1,000 MG in SODIUM CHLORIDE 0.9% 100 ML IV SCH (08:31)
[2022-04-06] MEDS: HEPARIN 5,000 UNIT/1 ML VIAL SUBCUT SCH ×2 (11:00→21:18)
[2022-04-06] MEDS: MEGESTROL 400 MG/10 ML UDCUP PO SCH ×2 (12:10→21:42)
[2022-04-06] MEDS: ISOSORBIDE DINITRATE 10 MG TABLET NG SCH (21:16)
[2022-04-06] MEDS: hydrALAZINE 25 MG TABLET NG SCH (21:16)
[2022-04-06] MEDS: MIRTAZAPINE 15 MG TABLET PO SCH (21:16)
[2022-04-06 22:37] LABS: Basophils # 0.1 10*3/uL (0.0-0.2); Basophils % 0.4 % (0.0-0.8); Eosinophils # 0.4 10*3/uL (0.0-0.87); Eosinophils % 2.9 % (0.00-10.9); Hematocrit 36.7 VOL% (42.0-52.0); Hemoglobin 10.9 GM/DL (14.0-18.0); Immature Granulocytes % 1.2 %; Immature Granulocytes Absolute 0.16 #; Lymphocytes # 1.7 10*3/uL (1.4-4.0); Lymphocytes % 12.6 % (21.2-54.2); Mean Corpuscular HGB Conc 29.7 GM/DL (32-36); Mean Corpuscular Volume 90.2 FL (87-102); Mean Platelet Volume 12.3 FL (9.6-12.0); Monocytes # 1.2 10*3/uL (0.11-0.8); Monocytes % 8.8 % (1.7-12.7); NRBC # 0.03 10*3/uL; Neutrophils % 74.1 % (38.7-73.9); Platelet Count 444 T/CUMM (130-400); Red Blood Count 4.07 MC/CUMM (3.8-5.5); Red Cell Distribution Width 16.8 % (9.3-17.3); White Blood Count 13.6 T/CUMM (4-12)
[2022-04-06 22:52] LABS: Osmolality,Calculated 338.6 MOS/KG (273-304); Potassium 4.5 MMOL/L (3.5-5.1)
[2022-04-07] MEDS: METOCLOPRAMIDE 10 MG/2 ML VIAL IV SCH ×4 (01:39→17:57)
[2022-04-07] MEDS: PIPERACILLIN/TAZOBACTAM 3,375 MG in SODIUM CHLORIDE 0.9% 100 ML IV SCH ×2 (01:39→14:14)
[2022-04-07 01:40] LABS: ABG Base Excess -1.4 MMOL/L (-2.5-2.5); ABG HCO3 23.2 MMOL/L (20-26); ABG PCO2 39.2 MM HG (35-48); ABG PH 7.384 (7.35-7.45); ABG TCO2 20.9 MMOL/L (23-27)
[2022-04-07] MEDS: INSULIN LISPRO 100 UNIT/ML SUBCUT SCH ×6 (01:40→20:49)
[2022-04-07 02:14] LABS: Bilirubin,Urine Negative (Negative); Blood, Urine Small mg/dL (Negative); Glucose,Urine (UA) 250 mg/dL (Negative); Ketones,Urine Negative (Negative); Nitrite,Urine Negative (Negative); Protein,Urine 30 mg/dL (Negative); Urine Appearance Clear (Clear); Urine Color Yellow (Yellow); Urine pH 5.5 (4.5-8.0)
[2022-04-07 02:15] LABS: Urine Urobilinogen 0.2 eU/dL (<2.0)
[2022-04-07 02:16] LABS: Amorphous Crystals,Urine Occasional /HPF (Few); Bacteria,Urine Occasional /HPF (Few); Mucus,Urine Occasional /LPF (Occasional); Squamous Epithelial Cell,Urine Occasional /HPF (0-10)
[2022-04-07 05:43] LABS: Albumin 2.1 G/DL (3.4-5.0); Bilirubin,Total 0.4 MG/DL (0.20-1.00); Calcium 9.4 MG/DL (8.5-10.1); Osmolality,Calculated 334.9 MOS/KG (273-304); Potassium 4.3 MMOL/L (3.5-5.1); Total Protein 7.5 G/DL (6.4-8.2)
[2022-04-07 06:10] LABS: Basophils # 0.1 10*3/uL (0.0-0.2); Basophils % 0.5 % (0.0-0.8); Eosinophils # 0.5 10*3/uL (0.0-0.87); Eosinophils % 3.2 % (0.00-10.9); Immature Granulocytes % 1.1 %; Immature Granulocytes Absolute 0.15 #; Lymphocytes # 1.9 10*3/uL (1.4-4.0); Mean Corpuscular HGB Conc 29.4 GM/DL (32-36); Mean Corpuscular Volume 92.3 FL (87-102); Mean Platelet Volume 12.8 FL (9.6-12.0); Monocytes # 1.2 10*3/uL (0.11-0.8); Monocytes % 8.6 % (1.7-12.7); NRBC # 0.03 10*3/uL; Neutrophils % 72.6 % (38.7-73.9); Platelet Count 464 T/CUMM (130-400); Red Blood Count 4.05 MC/CUMM (3.8-5.5); Red Cell Distribution Width 16.6 % (9.3-17.3); White Blood Count 13.9 T/CUMM (4-12)
[2022-04-07 06:11] LABS: Hematocrit 37.4 VOL% (42.0-52.0)
[2022-04-07] MEDS: hydrALAZINE 25 MG TABLET NG SCH ×2 (09:22→20:49)
[2022-04-07] MEDS: INSULIN GLARGINE 100 UNIT/ML SUBCUT SCH (09:22)
[2022-04-07] MEDS: MEGESTROL 400 MG/10 ML UDCUP PO SCH ×2 (09:22→20:50)
[2022-04-07] MEDS: CHOLECALCIFEROL 400 UNIT TABLET PO SCH ×2 (09:22→20:50)
[2022-04-07] MEDS: DAPAGLIFLOZIN 10 MG TABLET PO SCH (09:22)
[2022-04-07] MEDS: ASPIRIN EC 81 MG TABLET PO SCH (09:22)
[2022-04-07] MEDS: FERROUS SULFATE 300 MG/5 ML UDCUP PO SCH ×2 (09:22→20:50)
[2022-04-07] MEDS: ASCORBIC ACID 500 MG TABLET NG SCH ×2 (09:23→20:52)
[2022-04-07] MEDS: HEPARIN 5,000 UNIT/1 ML VIAL SUBCUT SCH ×2 (09:23→21:00)
[2022-04-07] MEDS: carvediloL 3.125 MG TABLET PO SCH ×2 (09:23→20:50)
[2022-04-07] MEDS: PANTOPRAZOLE 40 MG VIAL IV SCH (09:23)
[2022-04-07] MEDS: TICAGRELOR 90 MG TABLET PO SCH ×2 (09:23→20:50)
[2022-04-07] MEDS: ISOSORBIDE DINITRATE 10 MG TABLET NG SCH ×2 (09:23→20:49)
[2022-04-07] MEDS: AMIODARONE 200 MG TABLET PO SCH (09:23)
[2022-04-07] MEDS: MIRTAZAPINE 15 MG TABLET PO SCH (20:50)
[2022-04-08] MEDS: METOCLOPRAMIDE 10 MG/2 ML VIAL IV SCH ×4 (00:01→17:21)
[2022-04-08] MEDS: INSULIN LISPRO 100 UNIT/ML SUBCUT SCH ×6 (00:01→20:55)
[2022-04-08] MEDS: PIPERACILLIN/TAZOBACTAM 3,375 MG in SODIUM CHLORIDE 0.9% 100 ML IV SCH ×2 (02:45→13:50)
[2022-04-08 06:07] LABS: Bilirubin,Total 0.4 MG/DL (0.20-1.00); Calcium 9.1 MG/DL (8.5-10.1); Osmolality,Calculated 329.9 MOS/KG (273-304); Potassium 3.8 MMOL/L (3.5-5.1); Total Protein 7.1 G/DL (6.4-8.2)
[2022-04-08] MEDS: INSULIN GLARGINE 100 UNIT/ML SUBCUT SCH (08:26)
[2022-04-08] MEDS: ASCORBIC ACID 500 MG TABLET NG SCH ×2 (08:27→20:55)
[2022-04-08] MEDS: ASPIRIN EC 81 MG TABLET PO SCH (08:27)
[2022-04-08] MEDS: ATORVASTATIN 20 MG TABLET NG SCH (08:27)
[2022-04-08] MEDS: ISOSORBIDE DINITRATE 10 MG TABLET NG SCH ×2 (08:27→20:55)
[2022-04-08] MEDS: hydrALAZINE 25 MG TABLET NG SCH ×2 (08:27→20:55)
[2022-04-08] MEDS: MEGESTROL 400 MG/10 ML UDCUP PO SCH ×2 (08:27→20:55)
[2022-04-08] MEDS: FERROUS SULFATE 300 MG/5 ML UDCUP PO SCH ×2 (08:27→20:54)
[2022-04-08] MEDS: PANTOPRAZOLE 40 MG VIAL IV SCH (08:28)
[2022-04-08] MEDS: AMIODARONE 200 MG TABLET PO SCH (08:28)
[2022-04-08] MEDS: CHOLECALCIFEROL 400 UNIT TABLET PO SCH ×2 (08:28→20:55)
[2022-04-08] MEDS: carvediloL 3.125 MG TABLET PO SCH ×2 (08:28→20:55)
[2022-04-08] MEDS: DAPAGLIFLOZIN 10 MG TABLET PO SCH (08:28)
[2022-04-08] MEDS: TICAGRELOR 90 MG TABLET PO SCH ×2 (08:28→20:55)
[2022-04-08] MEDS: HEPARIN 5,000 UNIT/1 ML VIAL SUBCUT SCH ×2 (09:53→21:00)
[2022-04-08] MEDS: MORPHINE 2 MG/1 ML SYRINGE IV PRN (14:32)
[2022-04-08] MEDS: MIRTAZAPINE 15 MG TABLET PO SCH (20:55)
[2022-04-09] MEDS: METOCLOPRAMIDE 10 MG/2 ML VIAL IV SCH ×4 (00:13→17:55)
[2022-04-09] MEDS: INSULIN LISPRO 100 UNIT/ML SUBCUT SCH ×5 (00:13→17:31)
[2022-04-09] MEDS: ONDANSETRON 4 MG/2 ML VIAL IV PRN (00:48)
[2022-04-09] MEDS: PIPERACILLIN/TAZOBACTAM 3,375 MG in SODIUM CHLORIDE 0.9% 100 ML IV SCH ×2 (02:47→16:19)
[2022-04-09] MEDS: FERROUS SULFATE 300 MG/5 ML UDCUP PO SCH (09:00)
[2022-04-09] MEDS: MEGESTROL 400 MG/10 ML UDCUP PO SCH (09:01)
[2022-04-09] MEDS: hydrALAZINE 25 MG TABLET NG SCH (09:01)
[2022-04-09] MEDS: ASCORBIC ACID 500 MG TABLET NG SCH (09:01)
[2022-04-09] MEDS: ISOSORBIDE DINITRATE 10 MG TABLET NG SCH (09:01)
[2022-04-09] MEDS: PANTOPRAZOLE 40 MG VIAL IV SCH ×2 (09:01→09:03)
[2022-04-09] MEDS: CHOLECALCIFEROL 400 UNIT TABLET PO SCH (09:02)
[2022-04-09] MEDS: AMIODARONE 200 MG TABLET PO SCH (09:02)
[2022-04-09] MEDS: carvediloL 3.125 MG TABLET PO SCH (09:02)
[2022-04-09] MEDS: DAPAGLIFLOZIN 10 MG TABLET PO SCH (09:02)
[2022-04-09] MEDS: ASPIRIN EC 81 MG TABLET PO SCH (09:02)
[2022-04-09] MEDS: TICAGRELOR 90 MG TABLET PO SCH (09:02)
[2022-04-09] MEDS: INSULIN GLARGINE 100 UNIT/ML SUBCUT SCH (09:03)
[2022-04-09] MEDS: HEPARIN 5,000 UNIT/1 ML VIAL SUBCUT SCH (09:05)
[2022-04-09] MEDS: ATORVASTATIN 20 MG TABLET NG SCH (09:05)
== END 2022-04-09 17:30 | DRG 246 ==
LOC: N.ED 11:33 → N.CC 14:07 → SUATTDRO 14:30 → N.EDINP 14:30 → N.CC 14:58 → N.TELES 03-28 13:39 → N.CC 03-28 21:17
PROVIDERS: ADMIT Emergency Medicine; ATTEND Internal Medicine Cardiovascular Disease
PROC: CLCCHCL (ICD-10-PCS; 2022-03-25 14:15)